=== PATIENT | male | born 1945 | race Caucasian/White ===

== ENCOUNTER → 2019-08-01 | Outpatient (REF) | payer BC, OTHER ==
[~2019-08-01] MED LIST: APPL300T4 PO; ATOR1TAB19 PO; D-20TAB PO; FLOM0.4C39 PO; HYDR25TAB PO; LEVO112T2 PO; PANT40TA3 PO; PARO30TA3 PO; TRAD5TAB PO; ZYLO300T6 PO
[2019-08-01 19:32] LABS: CALCIUM LEVEL 8.3 MG/DL (8.8-10.2); CREATININE FOR GFR 2.08 MG/DL (0.70-1.30); GLOMERULAR FILTRATION RATE 33.6 (>42); POTASSIUM SERUM 3.9 MEQ/L (3.5-5.1)
== END ==
LOC: M LAB REF 18:37
PROVIDERS: ATTEND Nurse Practitioner Family
DX: R06.02 Shortness of breath (principal)

== ENCOUNTER → 2019-11-04 | Outpatient (REF) | payer OTHER ==
[~2019-11-04] MED LIST changes: +PANT40TA29 PO; -PANT40TA3 PO
[2020-01-05 23:11] LABS: CREATININE 24 HOUR, URINE 952.2 MG/24HR (950-2500); CREATININE, URINE 52.9 MG/DL; TOTAL VOLUME, URINE 1800 ML
== END ==
LOC: M LAB REF 07:44
PROVIDERS: ATTEND Internal Medicine Nephrology
DX: N17.9 Acute kidney failure, unspecified (principal)

== ENCOUNTER → 2020-01-29 | Outpatient (REF) | payer OTHER | LOC: M LAB REF 11:15 | PROVIDERS: ATTEND Internal Medicine | DX: M10.9 Gout, unspecified (principal) ==

== ENCOUNTER → 2020-03-03 | Outpatient (CLI) | payer BC, OTHER | LOC: M LABSMTC 10:09 | PROVIDERS: ATTEND Internal Medicine Cardiovascular Disease | DX: Z20.828 Contact with and (suspected) exposure to other viral communicable diseases (principal) ==

== ENCOUNTER → 2020-08-13 | Outpatient (REF) | payer OTHER, MEDICARE ==
[~2020-08-13] MED LIST changes: +HYDR-3490 PO; -HYDR25TAB PO
[2020-08-13 17:45] LABS: APPEARANCE, URINE CLEAR (CLEAR); BACTERIA, URINE AUTO NEGATIVE (NEGATIVE); BILIRUBIN, URINE AUTO NEGATIVE (NEGATIVE); BLOOD, URINE BLOOD NEGATIVE (NEGATIVE); COLOR, URINE STRAW (YELLOW); GLUCOSE, URINE (UA) AUTO NEGATIVE (NEGATIVE); KETONE, URINE AUTO NEGATIVE (NEGATIVE); LEUKOCYTE ESTERASE, URINE AUTO NEGATIVE (NEGATIVE); NITRITE, URINE AUTO NEGATIVE (NEGATIVE); PROTEIN, URINE AUTO 1+ mg/dL (NEGATIVE); RBC, URINE AUTO 0 /HPF (0-3); SPECIFIC GRAVITY URINE AUTO 1.008 (1.002-1.035); SQUAMOUS EPITHELIAL CELL UR AU 0 /HPF (0-6); UROBILINOGEN, URINE AUTO 0.2 mg/dL (0.0-2.0); WBC, URINE AUTO 0 /HPF (0-3)
== END ==
LOC: M LAB REF 16:56
PROVIDERS: ATTEND Internal Medicine
DX: Z01.818 Encounter for other preprocedural examination (principal)

== ENCOUNTER → 2021-03-15 | Outpatient (REF) | payer MEDICARE, OTHER | LOC: M LAB REF 13:21 | PROVIDERS: ATTEND Internal Medicine Nephrology | DX: I50.22 Chronic systolic (congestive) heart failure (principal) ==

== ENCOUNTER → 2021-10-28 | Outpatient (CLI) | payer MEDICARE, BC, OTHER | LOC: M RAD 11:41 | PROVIDERS: ATTEND Physician Assistant Medical | DX: I82.A12 Acute embolism and thrombosis of left axillary vein (principal); I82.612 Acute embolism and thrombosis of superficial veins of left upper extremity ==